=== PATIENT | male | born 1990 | race African-American/Black ===

== ENCOUNTER 2016-04-23 00:56 | Emergency (ER) | payer OTHER ==
[2016-04-23 01:28] VITALS: BP 151/94
[2016-04-23] MEDS ORDERED: ACETAMINOPHEN 325 MG TABLET PO ONE (01:28)
== END 2016-04-23 05:58 | disposition left against medical advice (07) ==
LOC: ER 00:56
DX: Z53.21 Procedure and treatment not carried out due to patient leaving prior to being seen by health care provider (principal)